=== PATIENT | female | born 1995 | race Two or more races ===

== ENCOUNTER 2024-10-24 04:29 | Emergency (ER) | payer MEDICAID, SELFPAY ==
[2024-10-24 04:38] VITALS: BP 120/70; PULSE 78; RESP 20; TEMP 36.8; O2SAT 99
--- NOTE | 2024-10-24 05:15 | XR_ITS ---
Examination: CT abdomen and pelvis without contrast. Coronal 3-D reconstructions. Sagittal 2-D reconstructions. Date and time of exam:October 24, 2024, 0728 hours, comparison September 13, 2020 INDICATIONS: Left-sided abdominal pain beginning 4:00 AM this morning CTDI: vol (mGy): 12.6 DLP: (mGycm): 759 Technique: Axial images of the abdomen have been obtained, 3 mm slice thickness Intravenous contrast material has not been administered. Low dose protocols were performed. One or more of the following dose reduction techniques were used; automated exposure control, adjustment of the mA and/or KV according to patient size, use of iterative reconstruction technique. Findings: Nodule left breast axial image 10 No focal liver or splenic lesion Absent gallbladder No pancreatic or adrenal mass No renal or ureteral calculi, no hydronephrosis Aorta normal size Normal appendix 27 mm fat-containing umbilical hernia No bowel obstruction or diverticulitis Anteverted uterus Intact urinary bladder The osseous structures are intact IMPRESSION: 13 mm nodule medial left breast, recommend bilateral breast sonography follow-up No renal or ureteral calculi, no hydronephrosis Normal appendix 27 mm fat-containing umbilical hernia. No bowel obstruction diverticulitis or free air
--- NOTE | 2024-10-24 05:15 | EDRME_ITS ---
Rapid Medical Screening Exam RME Arrival date/time: 10/24/24 04:29 Chief Complaint: Abdominal Pain Vital signs: Vital Signs Temperature 98.3 F 10/24/24 04:38 Pulse Rate 78 10/24/24 04:38 Respiratory Rate 20 10/24/24 04:38 Blood Pressure 120/70 10/24/24 04:38 Pulse Oximetry (%) 99 10/24/24 04:38 Oxygen Delivery Method Room Air 10/24/24 04:38 RME Narrative: 29-year-old female with no relevant past medical history comes into the ED with chief complaint of left lower quadrant abdominal pain that started this morning. Patient states that the pain started this morning and is not associated with any nausea, vomiting, fevers. Patient does have a history of 3 previous hysterectomies and cholecystectomy. Patient took ibuprofen, but it did not relieve the pain. Last menstrual period was last month and is supposed to start her menstrual period this upcoming week. Has not had any abnormal vaginal bleeding. Last bowel movement was yesterday without any blood. Pertinent findings on physical exam were relevant for left lower quadrant pain with palpation, no rebound tenderness, no masses palpated. Ordered abdomen/pelvis CT without contrast, morphine 2 mg x 1, and blood work. Case disclosed with Attending Dr. Azalia Bullock PGY2 Disclaimer: Even though this this note was dictated by speech recognition and even though it was carefully revised there may still be minor errors in pipe stress engineer due to voice recognition software.
[2024-10-24] MEDS: MORPHINE SULF INJ 10 MG/ML VIAL 2 MG IVP (05:43)
[2024-10-24 05:58] LABS: Collection Type, Urine Voided
[2024-10-24 05:59] LABS: Basophils # (Auto) 0.0 Thou/mm3 (0.0-0.2); Basophils % (Auto) 0 % (0-2.5); Eosinophils # (Auto) 0.2 Thou/mm3 (0.0-0.5); Eosinophils % (Auto) 2 % (0-10); Hematocrit 39.7 % (36.0-46.0); Hemoglobin 13.1 g/dL (12.0-16.0); Immature Granulocytes Auto 0.03 Thou/mm3 (0.00-0.00); Lactate (Lactic Acid) 0.9 mMol/L (0.4-2.0); Lymphocytes # (Auto) 2.8 Thou/mm3 (1.0-4.8); Lymphocytes % (Auto) 32 % (10-50); Mean Corpuscular HGB Conc 33.0 g/dl (31.0-37.0); Mean Corpuscular Hemoglobin 28.3 pg (25.0-35.0); Mean Corpuscular Volume 86 fL (80-100); Monocytes # (Auto) 0.4 Thou/mm3 (0.0-0.8); Monocytes % (Auto) 5 % (0-12); Neutrophils # (Auto) 5.2 Thou/mm3 (1.8-7.7); Neutrophils % (Auto) 60 % (37-80); Nucleated Red Blood Cell # 0.00 Thou/mm3 (0.00-0.00); Nucleated Red Blood Cell % 0 /100 WBC (0); Platelet Count 292 Thou/mm3 (140-440); RDW Standard Deviation 41.4 fL (36.4-46.3); Red Blood Count 4.63 Miln/mm3 (4.00-5.20); White Blood Count 8.7 Thou/mm3 (3.6-11.0)
--- NOTE | 2024-10-24 06:07 | PC.NURSE ---
PT BIB BY FOR LEFT SIDE ABDOMINAL PAIN. PT STATES THAT PAIN STARTED TODAY. PT DENIES N/V.
[2024-10-24 06:09] LABS: Amphetamine/Methamp Scrn,U Negative (Negative); Barbiturate Screen,Urine Negative (Negative); Benzodiazepines Screen,Urine Negative (Negative); Benzoylecgonine Screen, Ur Negative (Negative); Fentanyl Screen,Urine Negative (Negative); Opiate Screen,Urine Negative (Negative); THC Screen,Urine Negative (Negative)
[2024-10-24 06:16] LABS: HCG Qualitative,Urine Negative
[2024-10-24 06:23] LABS: Bacteria,Urine Rare; Bilirubin,Urine Negative (Negative); Blood,Urine Negative (Negative); Clarity,Urine Clear (Clear/Hazy); Color,Urine Yellow (Lt Yel-Yel); Glucose, Urine Negative (Negative); Ketones,Urine Negative (Negative); Leukocyte Esterase,Urine Negative (Negative); Nitrite,Urine Negative (Negative); PH,Urine 6.0 (5.0-7.0); Protein,Urine Negative (Neg - Trace); RBC,Urine < 1 /hpf (0-3); Specific Gravity,Urine 1.022 (1.001-1.035); Squamous Epithelial Cell,Urine 1 /hpf (0-5); Urobilinogen,Urine Negative mg/dL (0.0-1.0); WBC,Urine 1 /hpf (0-5)
[2024-10-24 06:27] LABS: Alanine Aminotransferase 56 U/L (10-49); Albumin, Serum 4.5 gm/dL (3.5-5.0); Albumin/Globulin Ratio 1.6 (1.2-2.2); Alkaline Phosphatase 91 U/L (46-116); Anion Gap 8 (7-16); Aspartate Amino Transferase 37 U/L (0-34); BUN/Creatinine Ratio 11 Ratio (12-20); Bilirubin,Total 0.6 mg/dL (0.3-1.2); Blood Urea Nitrogen 8 mg/dL (9-23); Calcium 9.1 mg/dL (8.3-10.6); Calcium (Corrected) 9.1 mg/dL (8.5-10.1); Carbon Dioxide 26.9 mMol/L (20.0-31.0); Chloride 105 mMol/L (98-107); Creatinine (Component) 0.7 mg/dL (0.6-1.3); Globulin 2.9 gm/dL (2.3-3.5); Glucose 86 mg/dL (74-106); Osmolality,Calculated 276 (275-295); Potassium 3.7 mMol/L (3.4-5.1); Procalcitonin 0.04 ng/ml (0.0-0.49); Sodium 140 mMol/L (136-145); Total Protein 7.4 gm/dL (5.7-8.2); eGFR > 60 See Note
--- NOTE | 2024-10-24 06:36 | EDNOTE_ITS ---
ED Abdominal Pain RME/HPI General Chief Complaint: Abdominal Pain Stated complaint: LEFT ABD PAIN Time seen by provider: 10/24/24 06:18 Arrival date/time: 10/24/24 04:29 RME / HPI RME / HPI narrative: 29-year-old female with no relevant past medical history comes into the ED with chief complaint of left lower quadrant abdominal pain that started this morning. Patient states that the pain started this morning and is not associated with any nausea, vomiting, fevers. Patient does have a history of 3 previous hysterectomies and cholecystectomy. Patient took ibuprofen, but it did not relieve the pain. Last menstrual period was last month and is supposed to start her menstrual period this upcoming week. Has not had any abnormal vaginal bleeding. Last bowel movement was yesterday without any blood. Pertinent findings on physical exam were relevant for left lower quadrant pain with palpation, no rebound tenderness, no masses palpated. Ordered abdomen/pelvis CT without contrast, morphine 2 mg x 1, and blood work. Case disclosed with Attending Dr. Azalia Bullock PGY2 Disclaimer: Even though this this note was dictated by speech recognition and even though it was carefully revised there may still be minor errors in brake coupler road freight due to voice recognition software. DR. SMITH MAIN ED EVALUATION 29 year old female with surgical history of cholecystectomy and c-sections othe rwise no other stated medical history, presents to the ED for evaluation of left lower abdominal pain that woke her from sleep at ~ 04:00h today. Described as aching in sensation rating as severe. States she had experienced similar pain twice before, lasting several hours, before resolving with Ibuprofen. However, states she took Ibuprofen today with no improvement, prompting ED visit. Additionally reports she initially had no associated nausea but since arriving to the ED and taking pain medication, she is nauseated. Denies fevers, chills, sweats, sore throat, vomiting, diarrhea, constipation, or change in urinary habits. Last bowel movement was yesterday and normal for her. Related Data Home Medications ?Medication ?Instructions ?Recorded ?Confirmed prenat.vits,nadja,log-[id number] 1 tab PO QDAY 01/01/20 02/15/20 Previous Rx's ?Medication ?Instructions ?Recorded hydrocodone 5 mg-acetaminophen 325 1 tab PO Q4HR PRN P atient rated 02/17/20 mg tablet pain 7 to 8 #30 tabs ibuprofen 400 mg tablet 800 mg (2 x 400 mg) PO Q8HR PRN 02/17/20 Pain Scale 4-6 (Moderate #30 tabs Allergies Allergy/AdvReac Type Severity Reaction Status Date / Time No Known Allergies Allergy Verified 10/24/24 04:30 Review of Systems Review of Systems Systems Reviewed: All systems reviewed, normal except as documented Past Medical History Past Medical History REPRODUCTIVE: Positive Previous Pregnancies OTHER HISTORY: Positive Hospitalization Surgical History SURGICAL: Positive Section Social History SMOKING STATUS: Never smoker ED Exam Narrative Physical exam: Constitutional: Awake, alert, nontoxic, no acute distress, overweight HEENT: NC, AT, EOMI Neck: Supple CV: RRR, no m/r/g Lungs: CTAB, no w/r/r, no respiratory distress. Abd: Soft, left lower quadrant tenderness, no HSM noted to palpation Back: No CVA tenderness, normal inspection Extremities: No deformities, no edema noted Neuro: AAOx3, CN 2-12 GIBL, no acute neuro deficit noted. Skin: Warm, dry, intact Course Course Course Narrative: 0910h: Patient remain stable through ED course, vitals are stable. Checked on patient, resting comfortably and in no acute distress. Labs and imaging performed today are unremarkable. We reviewed all the results, analysis, and treatment plans. Strict return precautions were outlined. Patient was discharged in stable condition. To follow-up with her PCP should symptoms persist, may consider GI follow-up. Quality Measures none Orders Category Date Time Status CT abdomen pelvis wo con Stat Exams 10/24/24 05:15 Completed US pelvic complete Stat Exams 10/24/24 06:35 Completed CBC [CBC] Stat Lab 10/24/24 05:52 Completed CMP [Comprehensive Metabolic Panel] Stat Lab 10/24/24 05:52 Completed Drug Screen,Urine Stat Lab 10/24/24 05:48 Completed HCG Qualitative,Urine Stat Lab 10/24/24 05:48 Completed Lactic Acid [Lactate (Lactic Acid)] Stat Lab 10/24/24 05:52 Completed Procalcitonin Stat Lab 10/24/24 05:52 Completed UA [Urinalysis] Stat Lab 10/24/24 05:48 Completed Ketorolac Inj [Toradol Inj] Med 10/24/24 06:35 Discontinued 30 mg IVP X1 ONE Morphine Inj Med 10/24/24 05:30 Discontinued 2 mg IVP X1 ONE Ondansetron Inj [Zofran Inj] Med 10/24/24 06:35 Discontinued 4 mg IVP X1 ONE Vital Signs Vital signs: Vital Signs Temperature 98.3 F 10/24/24 04:38 Pulse Rate 78 10/24/24 04:38 Respiratory Rate 20 10/24/24 04:38 Blood Pressure 120/70 10/24/24 04:38 Pulse Oximetry (%) 99 10/24/24 04:38 Oxygen Delivery Method Room Air 10/24/24 04:38 Pulse ox is 99% on room air which is adequate. Abdominal Pain MDM MDM Narrative MDM Narrative:: Temitope Evans am scribing for and in the presence of Dr. Smith. Patient data External records reviewed:: [facility] previous records (I reviewed ED visit on 08/08/2023 ) Clinical information provided by:: patient Social determinants that could affect healthcare access:: none Patient has the following chronic illnesses:: No chronic medical hx Surgical hx: C-sections, cholecystectomy How is presenting disease/condition affected by chronic disease/condition?: uneffected by Evaluation data The following diagnostics were reviewed and interpreted by me:: lab results and radiology exam(s) Lab and/or radiology exams considered but not ordered:: None Interpretation Summary: Ordering Physician: Duran Queen MD Date of Service: 10/24/24 Procedure(s): CT abdomen pelvis wo con Accession Number(s): [id number] cc: Titus Menon MD; NO PRIMARY/FAMILY,PHYSICIAN; Duran Queen MD~ Examination: CT abdomen and pelvis without contrast. Coronal 3-D reconstructions. Sagittal 2-D reconstructions. Date and time of exam:October 24, 2024, 0728 hours, comparison September 13, 2020 INDICATIONS: Left-sided abdominal pain beginning 4:00 AM this morning CTDI: vol (mGy): 12.6 DLP: (mGycm): 759 Technique: Axial images of the abdomen have been obtained, 3 mm slice thickness Intravenous contrast material has not been administered. Low dose protocols were performed. One or more of the following dose reduction techniques were used; automated exposure control, adjustment of the mA and/or KV according to patient size, use of iterative reconstruction technique. Findings: Nodule left breast axial image 10 No focal liver or splenic lesion Absent gallbladder No pancreatic or adrenal mass No renal or ureteral calculi, no hydronephrosis Aorta normal size Normal appendix 27 mm fat-containing umbilical hernia No bowel obstruction or diverticulitis Anteverted uterus Intact urinary bladder The osseous structures are intact IMPRESSION: 13 mm nodule medial left breast, recommend bilateral breast sonography follow-up No renal or ureteral calculi, no hydronephrosis Normal appendix 27 mm fat-containing umbilical hernia. No bowel obstruction diverticulitis or free air Dictated By: Titus eMnon MD Signed By: <Electronically signed by Tiuts Menon MD in [place]> 10/24/24 0747 Ordering Physician: Barbi Smith MD Date of Service: 10/24/24 Procedure(s): US pelvic complete Accession Number(s): [id number] cc: Titus Menon MD; Barbi Smith MD; NO PRIMARY/FAMILY,PHYSICIAN~ Examination: Pelvic ultrasound, transabdominal, complete Technique: Transabdominal ultrasound of the pelvis performed using grayscale imaging Date and time of exam: October 24, 2024, 0745 hours INDICATIONS: Onset left-sided flank pain pelvic pain today. FINDINGS: Uterus 10.2 cm endometrial stripe 1.2 cm No uterine mass or intrauterine gestation Right ovary 2.6 cm arterial flow Left ovary 2.8 cm arterial flow IMPRESSION: Negative examination Dictated By: Titus Menon MD Signed By: <Electronically signed by Titus Menon MD in [place]> 10/24/24 0757 Medications / Prescriptions Medications or Prescriptions considered but not ordered:: None Medication administrations:: Medication Administration History Discontinued Medications Ketorolac Tromethamine (Ketorolac Inj 30 Mg/Ml Vial) 30 mg IVP X1 ONE Stop: 10/24/24 06:36 Last Admin: 10/24/24 06:42 Dose: 30 mg Documented By: JAZMIN Morphine Sulfate (Morphine Sulf Inj 10 Mg/Ml Vial) 2 mg IVP X1 ONE Stop: 10/24/24 05:31 Last Admin: 10/24/24 05:43 Dose: 2 mg Documented By: JAZMIN Ondansetron HCl (Ondansetron Inj 2 Mg/Ml Inj 2 Ml) 4 mg IVP X1 ONE; Protocol Stop: 10/24/24 06:36 Last Admin: 10/24/24 06:41 Dose: 4 mg Documented By: JAZMIN See above Consultations Consultation(s) initiated? (list below): No Diagnosis Differential diagnosis abdominal pain: abdominal pain, calculus of kidney and constipation Most likely diagnosis given after review of the tests above:: Left lower quadrant pain Admission Indicated Admission indicated?: not indicated Admission Request Was there a request for admission?: No Disposition Plan Disposition Plan: Discharge Discharge Attestation Discharge Attestation: The patient and all family members were given an opportunity to ask questions and understood the discharge instructions. Discharge instructions specifically effects, indications for sooner follow up or return to the emergency department, and the expected course of current diagnosis. Patient condition: Stable Discharge Plan Plan Patient Disposition: HOME (Self Care) Patient condition on transfer: Stable Prescriptions/Referrals Prescriptions/Med Rec: No Action hydrocodone-acetaminophen 5-325 mg Tablet 1 tab PO Q4HR MDD 6 PRN (Reason: Patient rated pain 7 to 8) Qty: 30 0RF ibuprofen 400 mg Tablet 800 mg PO Q8HR PRN (Reason: Pain Scale 4-6 (Moderate) Qty: 30 0RF prenat.vits,nadja,[id number] Tablet 1 tab PO QDAY Referrals: No Primary/Family,Physician [Primary Care Provider] - In 1 week Problem List Clinical Impression: Left lower quadrant abdominal pain Patient/Caregiver Discharge Instructions Education Materials: Abdominal Pain Additional Instructions: May take Tylenol 1 g every 6 hours as needed for pain. May also try naproxen/Aleve 500 mg every 12 hours as needed for pain. Print Language: Macanese Stand Alone Forms: Jennifer Award Info., Patient Portal Info Letter
[2024-10-24] MEDS: ONDANSETRON INJ 2 MG/ML INJ 2 ML 4 MG IVP (06:41)
[2024-10-24] MEDS: KETOROLAC INJ 30 MG/ML VIAL IVP (06:42)
--- NOTE | 2024-10-24 07:30 | PC.NURSE ---
Received report from Amberly TRAN and assumed care of patient. Patient taken to CT.
[2024-10-24 08:01] VITALS: BP 108/58; PULSE 61; RESP 20; TEMP 36.9; O2SAT 98
== END 2024-10-24 09:47 | disposition home or self-care (01) ==
PROVIDERS: Emergency Provider Family Medicine
DX: R10.32 Left lower quadrant pain (principal); K42.9 Umbilical hernia without obstruction or gangrene; N63.20 Unspecified lump in the left breast, unspecified quadrant; Z90.49 Acquired absence of other specified parts of digestive tract
CPT/HCPCS: 36415; 74176; 76856; 80053; 80307; 81001; 81025; 83605; 84145; 85025; 99283; J1885; J2270; J2405

== ENCOUNTER 2024-12-18 06:05 | Day surgery (SDC) | payer MEDICAID, SELFPAY ==
[2024-12-17 11:01] VITALS: BMI 37.3
[2024-12-17 12:08] LABS: Basophils # (Auto) 0.0 Thou/mm3 (0.0-0.2); Basophils % (Auto) 0 % (0-2.5); Eosinophils # (Auto) 0.1 Thou/mm3 (0.0-0.5); Eosinophils % (Auto) 1 % (0-10); Hematocrit 39.0 % (36.0-46.0); Hemoglobin 13.0 g/dL (12.0-16.0); Immature Granulocytes Auto 0.02 Thou/mm3 (0.00-0.00); Lymphocytes # (Auto) 3.2 Thou/mm3 (1.0-4.8); Lymphocytes % (Auto) 36 % (10-50); Mean Corpuscular HGB Conc 33.3 g/dl (31.0-37.0); Mean Corpuscular Hemoglobin 28.7 pg (25.0-35.0); Mean Corpuscular Volume 86 fL (80-100); Monocytes # (Auto) 0.4 Thou/mm3 (0.0-0.8); Monocytes % (Auto) 5 % (0-12); Neutrophils # (Auto) 5.0 Thou/mm3 (1.8-7.7); Neutrophils % (Auto) 57 % (37-80); Nucleated Red Blood Cell # 0.00 Thou/mm3 (0.00-0.00); Nucleated Red Blood Cell % 0 /100 WBC (0); Platelet Count 288 Thou/mm3 (140-440); RDW Standard Deviation 41.6 fL (36.4-46.3); Red Blood Count 4.53 Miln/mm3 (4.00-5.20); White Blood Count 8.8 Thou/mm3 (3.6-11.0)
[2024-12-17 12:18] LABS: Anion Gap 11 (7-16); BUN/Creatinine Ratio 17 Ratio (12-20); Blood Urea Nitrogen 10 mg/dL (9-23); Calcium 9.7 mg/dL (8.3-10.6); Carbon Dioxide 24.1 mMol/L (20.0-31.0); Chloride 103 mMol/L (98-107); Creatinine (Component) 0.6 mg/dL (0.6-1.3); Estimated Creatinine Clearance 143.9 mL/min (>60); Glucose 83 mg/dL (74-106); Osmolality,Calculated 273 (275-295); Potassium 4.1 mMol/L (3.4-5.1); Sodium 138 mMol/L (136-145); eGFR > 60 See Note
[2024-12-18] VITALS (10 sets, daily range): BP systolic 104–114; BP diastolic 62–76; PULSE 57–73; RESP 12–20; TEMP 36.4–36.8; O2SAT 97–100; BMI 37.5
--- NOTE | 2024-12-18 07:20 | CHAP ---
Visited with patient giving encouragement and prayer.
--- NOTE | 2024-12-18 09:05 | SUR.PHASEI ---
0905 patient resting comfortably in [facility], on oxygen 6L via oxy mask, breathing unlabored, vital signs stable, dressing intact to abodmen; dermabond, fluffs, medipore tape, no bleeding noted, report received from Titus LUNDY/ Dr. Ramirez and Micaela TRAN
--- NOTE | 2024-12-18 09:16 | ESOP_ITS ---
Date of Procedure 12/18/24 Pre Op Diagnosis Incarcerated umbilical hernia Post Op Diagnosis Incarcerated umbilical hernia Procedure Laparoscopic assisted repair of incarcerated umbilical hernia with mesh Findings Approximately 3.5 cm umbilical hernia defect with incarcerated preperitoneal fat Procedure Description Patient brought into the operating room in supine position. After administration of general orotracheal anesthesia, patient's abdomen prepped and draped in standard surgical manner. A 5 mm incision was made in left upper tamika drant and Veress needle was inserted, pneumoperitoneum was obtained to 15 mmHg. The Veress needle was removed and a 5 mm trocar was placed. Laparoscopic camera was inserted, under direct visualization a laparoscopic camera a 5 mm trocar placed in left lower quadrant and additional 5 mm trocar placed in right lower quadrant. The abdomen was inspected and patient was noted to have an incarcerated umbilical hernia with preperitoneal fat being incarcerated within the hernia sac. There was no evidence of omental or bowel incarceration. At this point approximately 3 cm semicircular incision was made superior to the umbilicus and dissection was carried to subcutaneous tissue. The hernia sac was circumferentially dissected off surrounding tissue. The hernia sac along with incarcerated preperitoneal fat were excised from surrounding abdominal fascia. The fascia was cleared from overlying tissue. The defect was approximately 3.5 cm in diameter. A 4 x 6 elliptical shape proceed mesh was used to cover the defect. 2 tacking sutures using 0 Ethibond placed the 2 ends of the mesh and the mesh was placed inside the abdominal cavity through the hernia defect. The defect was closed with interrupted sutures using 0 Ethibond. The umbilicus was tacked into the underlying abdominal fascia was 2-0 Vicryl suture in subcutaneous tissue closed with interrupted sutures of 2-0 Vicryl. The abdomen was once again insufflated. 2 tacking sutures of the 2 ends of the mesh were retrieved through the previously marked abdominal wall site. Sutures were tightened and the mesh was further secured into anterior abdominal wall with secure strap tacking device. The mesh was covering the defect with at least 4 cm circumferential margin. Hemostasis was adequate and satisfactory. Instruments and trocars removed, pneumoperitoneum was evacuated and the incisions closed 4-0 Monocryl subcuticular fashion. Instruments, needles and sponge counts were reported to be correct ?2 patient tolerated the procedure well. Patient was extubated, breathing spontaneously and without difficulty and was transferred to postanesthesia care in stable condition. Anesthesia GETA and local Pathology / specimen Other (Hernia sac and contents) Estimated Blood Loss 5 Condition Stable Disposition PACU Surgeon Jacey Gill MD Surgical Staff Operation Date: 12/18/24 08:00 Case Staff Anesthesiologist: James Ramirez RN First Assistant: Ladan Garza
[2024-12-18] MEDS: KETOROLAC INJ 30 MG/ML VIAL IVP (09:18)
[2024-12-18] MEDS: ACETAMINOPHEN IVPB 1,000 MG/100 ML VIAL 250 MG IV (09:21)
[2024-12-18] MEDS: HYDROmorphone INJ 2 MG/ML VIAL 0.4 MG IVP (09:42)
--- NOTE | 2024-12-18 10:13 | SUR.PHASEII ---
1013 patient meets discharge criteria from recovery, awake and alert, breathing unlabored, vital signs stable, per patient her pain is tolerable, dressing intact; no bleeding noted, abdominal binder applied to patient per anesthesia order, drinking fluids, denies nausea, assisted with dressing into her clothing by her , discharge instructions given to patient and patients with the assistance of the hospital dog sitter Farrah, signed discharge instructions. Patient given all her belongings prior to discharge, transported via wheelchair and left in a private vehicle.
== END 2024-12-18 10:13 | disposition home or self-care (01) ==
PROVIDERS: PCP Family Medicine; Referring Provider Surgery; Visit Provider Surgery
PROC: 0WQF4ZZ Repair Abdominal Wall, Percutaneous Endoscopic Approach (ICD-10-PCS; CPT 49594; principal; 2024-12-18 08:00)
DX: K42.0 Umbilical hernia with obstruction, without gangrene (principal)
CPT/HCPCS: 49594; 36415; 80048; 85025; A4649; C1781; J0131; J0694; J1100; J1171; J1885; J2250; J2371; J2405; J2704; J2765; J3010; J3490; A9270

== ENCOUNTER 2024-12-19 02:01 | Emergency (ER) | payer MEDICAID, SELFPAY ==
[2024-12-19 02:02] VITALS: BMI 37.3
[2024-12-19 02:13] VITALS: BP 103/69; PULSE 63; RESP 18; TEMP 36.5; O2SAT 99
--- NOTE | 2024-12-19 02:14 | PD.EDABDPN ---
ED Abdominal Pain RME/HPI General Chief Complaint: Abdominal Pain Stated complaint: S/P SX HERNIA PAIN Time seen by provider: 12/19/24 02:18 Arrival date/time: 12/19/24 02:01 RME / HPI RME / HPI narrative: See MDM for Dr. Pineda's HPI documentation. Related Data Home Medications ?Medication ?Instructions ?Recorded ?Confirmed semaglutide (weight loss) 2.4 2.4 mg subcut Q7D 12/17/24 12/17/24 mg/0.75 mL subcutaneous pen injector (Wegovy) Previous Rx's ?Medication ?Instructions ?Recorded docusate sodium 100 mg capsule 100 mg PO BID #40 caps 12/18/24 (Colace) hydrocodone 5 mg-acetaminophen 325 1 tab PO Q6H PRN pain (scale score 12/18/24 mg tablet 7-10) #15 tabs ibuprofen 600 mg tablet 600 mg PO Q8H PRN pain (scale 12/18/24 score 4-6) #15 tabs Allergies Allergy/AdvReac Type Severity Reaction Status Date / Time No Known Allergies Allergy Verified 12/18/24 06:46 Review of Systems Review of Systems Systems Reviewed: All systems reviewed, normal except as documented Past Medical History Past Medical History NEUROLOGIC: Negative Neurological Disorders or Seizures CARDIAC: Negative Cardiac Disorders or Congestive Heart Failure RESPIRATORY: Negative Chronic Obstructive Pulmonary Disease (COPD) GASTROINTESTINAL: Negative Gastrointestinal Disorders, Hepatitis or Colorectal Cancer GENITOURINARY: Negative Genitourinary Disorders or Renal Disease REPRODUCTIVE: Positive Previous Pregnancies; Negative Breast Cancer MUSCULOSKELETAL: Negative Musculoskeletal Disorders or Bone Cancer ENDOCRINE: Negative Endocrine Disorders, Diabetes Mellitus Type 1 or Diabetes Mellitus Type 2 HEMATOLOGIC: Negative Blood Disorders OTHER HISTORY: Positive Hospitalization; Negative Autoimmune Disease, Down Syndrome, Developmental Delay, Shingles, Falls, Blood Transfusions, Blood Transfusion Reaction, Anesthesia Reactions, Organ Transplant, Chemotherapy, Radiation Therapy, Hyperbaric Therapy, MRSA, VRSA, Vancomycin-Resistant Enterococci, Human Immunodeficiency Virus (HIV), Chicken Pox, Measles, Mumps, Rubella (Marshallese Measles), Pertussis, Clostridium Difficile, Cancer, Breast Cancer, Cervical Cancer, Colorectal Cancer, Lung Cancer or Ovarian Cancer Family History FAMILY HISTORY: Positive Family Cancer and Family Surgery; Negative Family Psychiatric Problems, Family Respiratory Disorders, Family Cardiac Disorders, Family Gastrointestinal Problems or Family Anesthesia Reaction Surgical History SURGICAL: Positive Abdominal Surgery, Tubal Ligation and Section (x3); Negative Organ Transplant Social History SMOKING STATUS: Never smoker ED Exam Narrative Physical exam: See [facility] for Dr. Pineda's physical exam documentation. Course Quality Measures none Orders Category Date Time Status CT Screening NOW Care 12/19/24 02:20 Active Saline [Insert IV] NOW Care 12/19/24 02:[address] abdomen pelvis w con Stat Exams 12/19/24 02:20 Taken Amylase Stat Lab 12/19/24 03:05 Completed Bilirubin,Direct Stat Lab 12/19/24 03:05 Completed Blood Culture (Lab) Stat Lab 12/19/24 03:05 Received CBC Stat Lab 12/19/24 02:42 Completed CMP [Comprehensive Metabolic Panel] Stat Lab 12/19/24 03:05 Completed CRP [C-Reactive Protein] Stat Lab 12/19/24 03:05 Completed ESR [Sed Rate (ESR)] Stat Lab 12/19/24 02:42 Completed HCG,Qualitative Serum Stat Lab 12/19/24 03:05 Completed Lactate (Lactic Acid) Stat Lab 12/19/24 02:42 Completed Lipase Stat Lab 12/19/24 03:05 Completed Magnesium Stat Lab 12/19/24 03:05 Completed Procalcitonin Stat Lab 12/19/24 03:05 Completed UA, C/S IF [Urinalysis, C/S if Indicated] Stat Lab 12/19/24 04:08 Completed Diazepam Inj [Valium Inj] Med 12/19/24 04:20 Discontinued 8 mg IVP X1 ONE HYDROmorphone INJ [Dilaudid Inj] Med 12/19/24 02:19 Discontinued 2 mg IVP X1 ONE Ketorolac Inj [Toradol Inj] Med 12/19/24 02:19 Discontinued 30 mg IVP X1 ONE Ondansetron Inj [Zofran Inj] Med 12/19/24 02:19 Discontinued 4 mg IVP X1 ONE Piper/Tazo 3.375 gm Premix [Zosyn] Med 12/19/24 05:34 Ordered 3.375 gm in 50 ml IV X1 Ringers Lactated 1000 ml [Lactated Ringers] 1,000 ml Med 12/19/24 04:45 Discontinued IV 1,000 mls/hr Ringers Lactated 1000 ml [Lactated Ringers] 1,000 ml Med 12/19/24 04:58 Active IV 999 mls/hr Sodium Chloride 0.9% 1000 ml [Ns] 1,000 ml Med 12/19/24 02:19 Discontinued IV 999 mls/hr Vital Signs Vital signs: Vital Signs Temperature 97.7 F 12/19/24 02:13 Pulse Rate 63 12/19/24 02:13 Respiratory Rate 18 12/19/24 02:13 Blood Pressure 103/69 12/19/24 02:13 Pulse Oximetry (%) 99 12/19/24 02:13 Oxygen Delivery Method Room Air 12/19/24 02:13 Abdominal Pain MDM MDM Narrative MDM Narrative:: This section includes all my notes and documentations, including HPI, PE, and ED course. Oumar Pineda MD HPI: 29-year-old female here with severe abdominal pain. Yesterday, Dr. Gill performed umbilical hernia surgery here. She reports worsening abdominal pain and nausea and vomiting. No hematemesis or coffee-ground emesis. She reports no bowel movement and no flatus. No fever. No other complaints. ROS: All negative except as documented in HPI. Physical Exam: General: Alert and oriented. In severe pain. Eyes: Conjunctivae and lids clear. ENT: No nasal congestion. Neck: Supple. Heart: RRR. Lungs: No respiratory distress. Good air movement. No rhonchi, wheezing, rales. Abdomen: Severe and diffuse tenderness noted. Decreased bowel sounds. Equivocal distension. Equivocal rebound/guarding. Back: No CVA tenderness. Skin: Warm and dry. Neuro: Alert and oriented X 3. I reviewed all returned diagnostic test results. Blood tests remarkable for WBC 23.8, CRP 5.1. My interpretation of the abdominal CT report is: 1. Mild inflammatory changes and trace of soft tissues emphysema in the anterior abdominal wall at the probable surgical site without evidence of collections. 2. Small amount of free air within the peritoneal cavity, possibly postsurgical or possibly due to bowel perforation. Please, correlate clinically. 3. Small amount of complex fluid in the pelvis suspicious for peritonitis. Surgical consult is recommended. 4. Complex left ovarian lesion, consider correlation with pelvic ultrasound for further evaluation. At this point, diagnoses include: Abdominal pain after umbilical hernia repair yesterday Treatment here included: IV fluid Zofran 4 mg IV Toradol 30 mg IV Dilaudid 2 g IV Zosyn 3.375 g IV I discussed the case with Dr. Gill.? About the presentation and exam and diagnostics and treatments here.? Will be here to evaluate the patient. At 6 AM on 12/19/2024, the care of the patient was transferred to Dr. CHENEY. Oumar Pineda MD Patient data External records reviewed:: [facility] previous records (Per chart review, patient had umbilical hernia repair surgery here on 12/18/[address] Gill.) Clinical information provided by:: patient Social determinants that could affect healthcare access:: none Patient has the following chronic illnesses:: none How is presenting disease/condition affected by chronic disease/condition?: no chronic disease Evaluation data The following diagnostics were reviewed and interpreted by me:: lab results and radiology exam(s) Lab and/or radiology exams considered but not ordered:: none Interpretation Summary: I reviewed all returned diagnostic test results. Blood tests remarkable for WBC 23.8, CRP 5.1. My interpretation of the abdominal CT report is: 1. Mild inflammatory changes and trace of soft tissues emphysema in the anterior abdominal wall at the probable surgical site without evidence of collections. 2. Small amount of free air within the peritoneal cavity, possibly postsurgical or possibly due to bowel perforation. Please, correlate clinically. 3. Small amount of complex fluid in the pelvis suspicious for peritonitis. Surgical consult is recommended. 4. Complex left ovarian lesion, consider correlation with pelvic ultrasound for further evaluation. Medications / Prescriptions Medications or Prescriptions considered but not ordered:: none Medication administrations:: Medication Administration History Lactated Ringer's (Lactated Ringers) 1,000 mls @ 999 mls/hr IV .Q1H1M ONE Stop: 12/19/24 05:58 Last Admin: 12/19/24 05:04 Dose: 999 mls/hr Documented By: LISS Piperacillin/Tazobactam/Dextrose (Zosyn) 3.375 gm in 50 mls @ 100 mls/hr IV X1 ONE; Protocol Stop: 12/19/24 06:03 Discontinued Medications Diazepam (Diazepam Inj 5 Mg/Ml Vial 2 Ml) 8 mg IVP X1 ONE Stop: 12/19/24 04:21 Last Admin: 12/19/24 04:59 Dose: Not Given Documented By: JAZMIN Non-Admin Reason: Cancelled by Provider Hydromorphone HCl (Hydromorphone Inj 2 Mg/Ml Vial) 2 mg IVP X1 ONE Stop: 12/19/24 02:20 Last Admin: 12/19/24 03:05 Dose: 2 mg Documented By: JAZMIN Sodium Chloride (Ns) 1,000 mls @ 999 mls/hr IV .Q1H1M ONE Stop: 12/19/24 03:19 Last Infusion: 12/19/24 04:12 Dose: Infused Documented By: Admin: 12/19/24 02:58 Dose: 999 mls/hr Documented By: JAZMIN Lactated Ringer's (Lactated Ringers) 1,000 mls @ 1,000 mls/hr IV .Q1H CASSI Stop: 01/18/25 04:44 Last Admin: 12/19/24 04:59 Dose: Not Given Documented By: JAZMIN Non-Admin Reason: Cancelled by Provider Ketorolac Tromethamine (Ketorolac Inj 30 Mg/Ml Vial) 30 mg IVP X1 ONE Stop: 12/19/24 02:20 Last Admin: 12/19/24 02:58 Dose: 30 mg Documented By: JAZMIN Ondansetron HCl (Ondansetron Inj 2 Mg/Ml Inj 2 Ml) 4 mg IVP X1 ONE; Protocol Stop: 12/19/24 02:20 Last Admin: 12/19/24 02:58 Dose: 4 mg Documented By: JAZMIN IV fluid Zofran 4 mg IV Toradol 30 mg IV Dilaudid 2 g IV Zosyn 3.375 g IV Consultations Consultation(s) initiated? (list below): Yes Consultation #1 (Physician, Specialty, Details): I discussed the case with Dr. Gill.? About the presentation and exam and diagnostics and treatments here.? Will be here to evaluate the patient. Diagnosis Differential diagnosis abdominal pain: acute appendicitis, calculus of kidney, constipation, diverticulitis, endometriosis, gastroenteritis, pancreatitis, small bowel obstruction and other (Postsurgical complication) Most likely diagnosis given after review of the tests above:: Possible perforation and peritonitis after umbilical hernia repair. Admission Indicated Admission indicated?: not indicated Explain why admission is indicated or not indicated:: I discussed the case with Dr. Gill.? About the presentation and exam and diagnostics and treatments here.? Will be here to evaluate the patient. Admission Request Was there a request for admission?: No Disposition Plan Disposition Plan: other (specify) (At 6 AM on 12/19/2024, the care of the patient was transferred to Dr. CHENEY.) Discharge Plan Prescriptions/Referrals Prescriptions/Med Rec: No Action Wegovy 2.4 mg/0.75 mL pen injector 2.4 mg SUBCUT Q7D Patient Comments: INJECT 2.4MG SUBCUTANEOUSLY WEEKLY docusate sodium [Colace] 100 mg capsule 100 mg PO BID Qty: 40 0RF hydrocodone-acetaminophen 5-325 mg tablet 1 tab PO Q6H MDD 4 PRN (Reason: pain (scale score 7-10)) Qty: 15 0RF ibuprofen 600 mg tablet 600 mg PO Q8H PRN (Reason: pain (scale score 4-6)) Qty: 15 0RF Referrals: Regan Martínez MD [Primary Care Provider, Family Practice] - In 1 week Problem List Clinical Impression: Abdominal pain Patient/Caregiver Discharge Instructions Print Language: French
--- NOTE | 2024-12-19 02:20 | XR_ITS ---
Examination: CT abdomen with intravenous contrast CT pelvis with intravenous contrast 2-D coronal reconstructions 2-D sagittal reconstructions Date and time of exam: December 19, 2024, 0431 hours INDICATIONS: Status post hernia repair yesterday with worsening abdominal pain. CTDI: vol (mGy) 12.3 DLP: (mGycm) 719 Technique: Multiple axial sections of the abdomen and pelvis have been obtained. 64 slice high-resolution scanner used. 3 mm axial sections have been obtained, post intravenous injection 60 cc [id number] 2-D sagittal, coronal reconstructions obtained. Low dose protocols were performed. One or more of the following dose reduction techniques were used; automated exposure control, adjustment of the mA and/or KV according to patient size, use of iterative reconstruction technique. Findings: Pneumoperitoneum consistent with patient's postop status No liver or splenic lesion Absent gallbladder No pancreatic or adrenal mass No renal or ureteral calculi, no hydronephrosis Air and density in the anterior abdominal wall, consistent with postoperative change No bowel obstruction Normal appendix Moderate free fluid in the pelvis Contracted urinary bladder Mild osteopenia IMPRESSION: Pneumoperitoneum consistent with patient's postop status Normal appendix Postoperative changes in the lower anterior abdominal wall No bowel obstruction No abdominal or pelvic hematoma or abscess
[2024-12-19 02:49] LABS: Basophils # (Auto) 0.0 Thou/mm3 (0.0-0.2); Basophils % (Auto) 0 % (0-2.5); Eosinophils # (Auto) 0.1 Thou/mm3 (0.0-0.5); Eosinophils % (Auto) 0 % (0-10); Hematocrit 37.7 % (36.0-46.0); Hemoglobin 13.0 g/dL (12.0-16.0); Immature Granulocytes Auto 0.16 Thou/mm3 (0.00-0.00); Lactate (Lactic Acid) 1.8 mMol/L (0.4-2.0); Lymphocytes # (Auto) 1.4 Thou/mm3 (1.0-4.8); Lymphocytes % (Auto) 6 % (10-50); Mean Corpuscular HGB Conc 34.5 g/dl (31.0-37.0); Mean Corpuscular Hemoglobin 28.8 pg (25.0-35.0); Mean Corpuscular Volume 83 fL (80-100); Monocytes # (Auto) 0.9 Thou/mm3 (0.0-0.8); Monocytes % (Auto) 4 % (0-12); Neutrophils # (Auto) 21.3 Thou/mm3 (1.8-7.7); Neutrophils % (Auto) 90 % (37-80); Nucleated Red Blood Cell # 0.00 Thou/mm3 (0.00-0.00); Nucleated Red Blood Cell % 0 /100 WBC (0); Platelet Count 290 Thou/mm3 (140-440); RDW Standard Deviation 41.1 fL (36.4-46.3); Red Blood Count 4.52 Miln/mm3 (4.00-5.20); White Blood Count 23.8 Thou/mm3 (3.6-11.0)
[2024-12-19 02:57] LABS: Sed Rate (ESR) 32 mm/hr (0-20)
[2024-12-19] MEDS: SODIUM CHLORIDE 0.9% 1000 ML 1,000 ML 999 ML IV (02:58)
[2024-12-19] MEDS: ONDANSETRON INJ 2 MG/ML INJ 2 ML 4 MG IVP (02:58)
[2024-12-19] MEDS: KETOROLAC INJ 30 MG/ML VIAL IVP (02:58)
[2024-12-19] MEDS: HYDROmorphone INJ 2 MG/ML VIAL IVP (03:05)
[2024-12-19 03:40] LABS: HCG,Qualitative Serum Negative
[2024-12-19 03:44] LABS: Alanine Aminotransferase 57 U/L (10-49); Albumin, Serum 4.2 gm/dL (3.5-5.0); Albumin/Globulin Ratio 1.6 (1.2-2.2); Alkaline Phosphatase 67 U/L (46-116); Amylase 104 U/L (30-118); Anion Gap 11 (7-16); Aspartate Amino Transferase 27 U/L (0-34); BUN/Creatinine Ratio 9 Ratio (12-20); Bilirubin,Direct 0.2 mg/dL (0.0-0.3); Bilirubin,Total 0.8 mg/dL (0.3-1.2); Blood Urea Nitrogen 6 mg/dL (9-23); C-Reactive Protein 5.1 mg/dL (0.0-0.9); Calcium 9.3 mg/dL (8.3-10.6); Calcium (Corrected) 9.3 mg/dL (8.5-10.1); Carbon Dioxide 21.8 mMol/L (20.0-31.0); Chloride 106 mMol/L (98-107); Creatinine (Component) 0.7 mg/dL (0.6-1.3); Estimated Creatinine Clearance 123.3 mL/min (>60); Globulin 2.7 gm/dL (2.3-3.5); Glucose 142 mg/dL (74-106); Lipase 23 U/L (12-53); Magnesium 1.8 mg/dL (1.6-2.6); Osmolality,Calculated 277 (275-295); Potassium 3.8 mMol/L (3.4-5.1); Procalcitonin 0.06 ng/ml (0.0-0.49); Sodium 139 mMol/L (136-145); Total Protein 6.9 gm/dL (5.7-8.2); eGFR > 60 See Note
[2024-12-19 04:19] LABS: Collection Type, Urine Clean Catch
[2024-12-19 04:40] VITALS: BP 101/68; PULSE 60; RESP 19; TEMP 36.9; O2SAT 97
[2024-12-19 04:44] LABS: Bacteria,Urine Rare; Bilirubin,Urine Negative (Negative); Blood,Urine Negative (Negative); Clarity,Urine Turbid (Clear/Hazy); Color,Urine Yellow (Lt Yel-Yel); Culture Indicated,Urine Not Indicated; Glucose, Urine Negative (Negative); Ketones,Urine Negative (Negative); Leukocyte Esterase,Urine Positive (Negative); Nitrite,Urine Negative (Negative); PH,Urine 6.5 (5.0-7.0); Protein,Urine 1+ (Neg - Trace); RBC,Urine 15 /hpf (0-3); Specific Gravity,Urine 1.033 (1.001-1.035); Squamous Epithelial Cell,Urine 50 /hpf (0-5); Urobilinogen,Urine Negative mg/dL (0.0-1.0); WBC,Urine 7 /hpf (0-5)
[2024-12-19] MEDS: RINGERS LACTATED 1000 ML 1,000 ML 999 ML IV (05:04)
--- NOTE | 2024-12-19 05:33 | PRELIM_ITS ---
CT scan of the abdomen and pelvis with intravenous contrast (axial sections with sagittal and coronal reformats) December 19, 2024 0429 hours Clinical History: Severe pain, hernia surgery yesterday. Comparison: Compared with the prior study dated October 24, 2024. Findings: The lung bases are clear. The liver, pancreas, spleen, kidneys and adrenals are unremarkable. Status post cholecystectomy. No evidence of bowel obstruction. The appendix is within normal limits. There is no mesenteric or retroperitoneal adenopathy. The urinary bladder is nondistended, limited evaluation. Small amount of complex free fluid in the peritoneal cavity. Small amount of free air within the peritoneal cavity. Mild inflammatory changes and trace of soft tissues emphysema in the anterior abdominal wall at the probable surgical site without evidence of collections. The osseous structures are unremarkable. Complex lesion in the left ovary measures 2.2 cm. No collections. Impression: 1. Mild inflammatory changes and trace of soft tissues emphysema in the anterior abdominal wall at the probable surgical site without evidence of collections. 2. Small amount of free air within the peritoneal cavity, possibly postsurgical or possibly due to bowel perforation. Please, correlate clinically. 3. Small amount of complex fluid in the pelvis suspicious for peritonitis. Surgical consult is recommended. 4. Complex left ovarian lesion, consider correlation with pelvic ultrasound for further evaluation. Report Electronically Signed By: Pedro Valencia 12/19/2024 5:32:31 AM [EST]
[2024-12-19] MEDS: PIPER/TAZO 3.375 GM PREMIX 3.375 GM/50 ML BAG IV (05:45)
--- NOTE | 2024-12-19 06:06 | EDNOTE_ITS ---
Emergency Room Addendum Addendum Narrative: 0600: Care assumed from Dr. Pineda, the previous shift emergency physician. Past medical, surgical, social and family history reviewed. Vitals and home medications reviewed. I will assume the care of the patient at this time, pending surgeon Dr. Gill to evaluate and final disposition. Please refer to the emergency department record for history and examination from initial visit.?The following addendum documentation note is intended to reflect any pending information, findings, or radiology results not included in the patient?s initial chart. Surgeon Dr. Gill has evaluated the patient in the ED. States patient can go home with instructions to order picker/assembler her pain medication at the pharmacy and follow up with him in his office.
[2024-12-19 06:10] VITALS: BP 105/64; PULSE 66; RESP 20; TEMP 36.8; O2SAT 100
--- NOTE | 2024-12-19 06:41 | PD.SURCONS ---
HPI Consult details Consult date: 12/19/24 Reason for consultation narrative: Abdominal pain History of present illness: I was called to see the patient I did laparoscopic hernia repair yesterday for possible bowel perforation. She underwent laparoscopic assisted repair of incarcerated umbilical hernia with mesh yesterday. She was having diffuse abdominal pain and was unable to picker and sorter load and unload her pain medication from pharmacy. She presented to the emergency department with diffuse abdominal pain, CT scan was performed with postoperative changes and bowel perforation could not be ruled out. When I entered patient's room she is resting comfortably and was not complaining of any abdominal pain at this time. Meds Home Medications and Allergies Home Medications ?Medication ?Instructions ?Recorded ?Confirmed ?Type semaglutide (weight loss) 2.4 2.4 mg subcut Q7D 12/17/24 12/17/24 History mg/0.75 mL subcutaneous pen injector (Wegovy) Allergies Allergy/AdvReac Type Severity Reaction Status Date / Time No Known Allergies Allergy Verified 12/18/24 06:46 Exam Vital Signs Temp Pulse Resp BP Pulse Ox O2 Del Method 98.3 F 66 20 105/64 100 Room Air 12/19/24 06:10 12/19/24 06:10 12/19/24 06:10 12/19/24 06:10 12/19/24 06:10 12/19/24 06:10 Constitutional Constitutional: no acute distress Routine Abdominal Exam Comments: Abdomen is very soft and not distended. Umbilical incision with dressings clean, dry and intact. Laparoscopic port incisions with Dermabond clean dry and intact Assessment & Plan Additional Assessment Additional comments: Abdominal pain status post laparoscopic assisted umbilical hernia repair. CT scan reviewed there is no free fluid or significant free air. Given patient's physical exam and CT scan findings, highly unlikely that she has bowel perforation. Plan May discharge home. Patient will picker and sorter load and unload her pain medication from pharmacy and follow-up in my office
[2024-12-19 07:18] VITALS: BP 104/69; PULSE 74; RESP 18; TEMP 36.4; O2SAT 99
[2024-12-19 08:00] VITALS: BP 104/62; PULSE 63; RESP 16; TEMP 36.6; O2SAT 99
== END 2024-12-19 08:34 | disposition home or self-care (01) ==
PROVIDERS: Emergency Medicine; Emergency Provider Emergency Medicine; PCP Family Medicine
DX: R10.9 Unspecified abdominal pain (principal); J43.9 Emphysema, unspecified; N83.8 Other noninflammatory disorders of ovary, fallopian tube and broad ligament; Z98.890 Other specified postprocedural states
CPT/HCPCS: 36415; 74177; 80053; 81001; 82150; 82248; 83605; 83690; 83735; 84145; 84703; 85025; 85652; 86140; 87040; 96361; 96365; 96375; 99284; A4649; J1171; J1885; J2405; J2543; J7030; J7120; Q9967

== ENCOUNTER → 2024-12-25 | Outpatient (CLI) | payer MEDICAID, SELFPAY ==
--- NOTE | 2024-12-25 15:00 | XR_ITS ---
Examination: Breast ultrasound, unilateral, right complete Date and time of exam: December 25, 2024, 1512 hours INDICATIONS: History of breast cystic disease Technique: Real-time hayden scale ultrasonographic imaging performed right breast including all 4 quadrants as well as nipple retroareolar and axillary region. Findings: 10:00 cyst 8 x 7 mm No solid nodules IMPRESSION: BI-RADS Category 2: Benign findings
== END | disposition home or self-care (01) ==
LOC: CDIM 14:57
PROVIDERS: PCP Nurse Practitioner Family; Referring Provider Nurse Practitioner Family; Visit Provider Nurse Practitioner Family
DX: N60.01 Solitary cyst of right breast (principal); Z80.3 Family history of malignant neoplasm of breast
CPT/HCPCS: 76641

== ENCOUNTER 2025-01-16 18:44 | Emergency (ER) | payer MEDICAID, SELFPAY ==
[2025-01-16 18:53] VITALS: BP 128/85; PULSE 85; RESP 20; TEMP 36.7; O2SAT 97
--- NOTE | 2025-01-16 19:07 | XR_ITS ---
Examination: CT abdomen with intravenous contrast CT pelvis with intravenous contrast 2-D coronal reconstructions 2-D sagittal reconstructions Date and time of exam: January 16, 2025, 2045 hours, comparison December 19, 2024 INDICATION: Pelvic pain post fall today. CTDI: vol (mGy) 13.3 DLP: (mGycm) 728 Technique: Multiple axial sections of the abdomen and pelvis have been obtained. 64 slice high-resolution scanner used. 3 mm axial sections have been obtained, post intravenous injection 60 cc Isovue-370 2-D sagittal, coronal reconstructions obtained. Low dose protocols were performed. One or more of the following dose reduction techniques were used; automated exposure control, adjustment of the mA and/or KV according to patient size, use of iterative reconstruction technique. Findings: No liver splenic or renal laceration, no perinephric hematoma Absent gallbladder No common bile duct stones Aorta normal size No pericecal inflammatory change No bowel obstruction Negative for pneumoperitoneum No pelvic mass Urinary bladder intact Mild osteopenia IMPRESSION: No abdominal parenchymal laceration Abdominal aorta intact No free blood in the abdomen or pelvis Negative for pneumoperitoneum
--- NOTE | 2025-01-16 19:08 | EDNOTE_ITS ---
ED Fall Injury RME/HPI General Chief Complaint: Fall Stated Complaint: FALL, ABD PAIN Time Seen by Provider: 01/16/25 19:08 Source: patient, RN notes reviewed and old records reviewed Arrival date/time: 01/16/25 18:44 Mode of arrival: ambulatory Limitations: no limitations RME / HPI RME / HPI Narrative: 29yof presents to ED for lower abdominal pain s/p fall today. Patient reports she slipped on a wet floor and fell onto her right side, denies head injury. History of umbilical hernia repair on 12/18/2024. Patient reports she felt something tear in lower abdomen with fall. No nausea/vomiting or urinary symptoms reported. Denies neck pain, back pain or joint pain from fall. 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 Related Data Home Medications ?Medication ?Instructions ?Recorded ?Confirmed semaglutide (weight loss) 2.4 2.4 mg subcut Q7D 12/17/24 mg/0.75 mL subcutaneous pen injector (Wegovy) Previous Rx's ?Medication ?Instructions ?Recorded docusate sodium 100 mg capsule 100 mg PO BID #40 caps 12/18/24 (Colace) hydrocodone 5 mg-acetaminophen 325 1 tab PO Q6H PRN pa in (scale score 12/18/24 mg tablet 7-10) #15 tabs ibuprofen 600 mg tablet 600 mg PO Q8H PRN pain (scal e 12/18/24 score 4-6) #15 tabs ibuprofen 600 mg tablet 600 mg PO Q6H PRN pain #30 t abs 01/16/25 methocarbamol 500 mg tablet 1,000 mg (2 x 500 mg) PO Q 8H PRN 01/16/25 pain #30 tabs Allergies Allergy/AdvReac Type Severity Reaction Status Date / Time No Known Allergies Allergy Verified 01/16/25 18:48 Review of Systems Review of Systems Systems Reviewed: All systems reviewed, normal except as documented Constitutional Constitutional: Denies chills and Denies fever(s) ENT Ears, Nose, Mouth, and Throat: Denies neck pain Gastrointestinal Gastrointestinal: Reports abdominal pain, Denies nausea and Denies vomiting Genitourinary Genitourinary: Denies dysuria, Denies flank pain and Denies hematuria Musculoskeletal Musculoskeletal: Denies arthralgias, Denies back pain and Denies neck pain Past Medical History Past Medical History GASTROINTESTINAL: Positive Obesity Surgical History SURGICAL: Positive Abdominal Surgery (hernia repair), Tubal Ligation, Section and Hx Cholecystectomy Social History SMOKING STATUS: Never smoker SUBSTANCE USE: does not use ALCOHOL: Never ED Exam General Limitations: Present no limitations General appearance: Present alert, in no apparent distress and obese Head Head exam: Present atraumatic and normocephalic Eye Eye exam: Present normal appearance, PERRL and EOMI ENT ENT exam: Present normal exam and mucous membranes moist Neck Neck exam: Present normal inspection and full ROM Chest Chest inspection: Present normal inspection and symmetric chest wall rise Respiratory Respiratory exam: Present normal lung sounds bilaterally; Absent respiratory distress Cardiovascular Cardiovascular exam: Present regular rate and normal rhythm Abdominal Exam Abdominal exam: Present soft; Absent distention, tenderness, guarding or rebound Extremities Exam Extremities exam: Present normal inspection and full ROM Back Exam Back exam: Present normal inspection and full ROM; Absent paraspinal tenderness or vertebral tenderness Neurological Exam Neurological exam: Present alert and oriented X3 Psychiatric Psychiatric exam: Present normal affect and normal mood Skin Skin exam: Present warm, dry, intact and normal color Course Quality Measures none Orders Category Date Time Status CT Screening NOW Care 01/16/25 19:07 Completed Insert IV NOW Care 01/16/25 20:[address] abdomen pelvis w con Stat Exams 01/16/25 19:07 Completed BMP [Basic Metabolic Panel] Stat Lab 01/16/25 19:12 Completed HCG,Qualitative Serum Stat Lab 01/16/25 19:12 Completed HYDROcodone*/APAP 7.5/325 [[place] 7.5/325] Med 01/16/25 19:07 Discontinued 1 tab PO X1 ONE Vital Signs Vital signs: Vital Signs Temperature 98.1 F 01/16/25 18:53 Pulse Rate 85 01/16/25 18:53 Respiratory Rate 20 01/16/25 18:53 Blood Pressure 128/85 H 01/16/25 18:53 Pulse Oximetry (%) 97 01/16/25 18:53 Fall MDM Narrative MDM Narrative:: 29yof presents to ED for lower abdominal pain s/p fall today. Patient reports she slipped on a wet floor and fell onto her right side, denies head injury. History of umbilical hernia repair on 12/18/2024. Patient reports she felt something tear in lower abdomen with fall. No nausea/vomiting or urinary symptoms reported. Denies neck pain, back pain or joint pain from fall. 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 Patient updated on labs and imaging. Injury and symptoms c/w abdominal muscle strain. Encouraged rest, Motrin/Tylenol, muscle relaxer, ice/heat application prn. Stable for discharge, RTED precautions given. Patient data External records reviewed:: [facility] previous records (12/19/2024 ED visit for abdominal pain) Clinical information provided by:: patient Social determinants that could affect healthcare access:: other (specify) (Unemployed) Patient has the following chronic illnesses:: Obesity How is presenting disease/condition affected by chronic disease/condition?: exacerbated by Evaluation data The following diagnostics were reviewed and interpreted by me:: lab results and radiology exam(s) Lab and/or radiology exams considered but not ordered:: None Interpretation Summary: CT abd/pelvis: IMPRESSION: No abdominal parenchymal laceration Abdominal aorta intact No free blood in the abdomen or pelvis Negative for pneumoperitoneum Dictated By: Titus Menon MD Medications / Prescriptions Medications or Prescriptions considered but not ordered:: None Medication administrations:: Medication Administration History Discontinued Medications Hydrocodone Bitart/Acetaminophen (Hydrocodone/[place] 7.5/325 Tablet) 1 tab PO X1 ONE Stop: 01/16/25 19:08 Last Admin: 01/16/25 19:52 Dose: 1 tab Documented By: Above medication administered in ED Consultations Consultation(s) initiated? (list below): No Diagnosis Fall Differential Diagnosis: other (Abdominal trauma, abdominal contusion, muscle strain, complication of hernia repair, wound dehiscence) Most likely diagnosis given after review of the tests above:: Abdominal wall strain Admission Indicated Admission indicated?: not indicated Admission Request Was there a request for admission?: No Disposition Plan Disposition Plan: Discharge Discharge Attestation Discharge Attestation: The patient and all family members were given an opportunity to ask questions and understood the discharge instructions. Discharge instructions specifically effects, indications for sooner follow up or return to the emergency department, and the expected course of current diagnosis. Patient condition: Stable Discharge Plan Plan Patient Disposition: HOME (Self Care) Patient condition on transfer: Stable Prescriptions/Referrals Prescriptions/Med Rec: New ibuprofen 600 mg tablet 600 mg PO Q6H PRN (Reason: pain) Qty: 30 0RF methocarbamol 500 mg tablet 1,000 mg PO Q8H PRN (Reason: pain) Qty: 30 0RF No Action Wegovy 2.4 mg/0.75 mL pen injector 2.4 mg SUBCUT Q7D Patient Comments: INJECT 2.4MG SUBCUTANEOUSLY WEEKLY docusate sodium [Colace] 100 mg capsule 100 mg PO BID Qty: 40 0RF hydrocodone-acetaminophen 5-325 mg tablet 1 tab PO Q6H MDD 4 PRN (Reason: pain (scale score 7-10)) Qty: 15 0RF ibuprofen 600 mg tablet 600 mg PO Q8H PRN (Reason: pain (scale score 4-6)) Qty: 15 0RF Referrals: No Primary/Family,Physician [Primary Care Provider] - In 1 week Problem List Clinical Impression: Abdominal wall strain Patient/Caregiver Discharge Instructions Education Materials: ED Muscle Strain, Abdomen Print Language: Andorran Stand Alone Forms: Jennifer Award Info., Patient Portal Info Letter PA/FIRE SUPPRESSION CAPTAIN Supervising Physician PA/FIRE SUPPRESSION CAPTAIN Supervising Physician: Ernst
[2025-01-16 19:41] LABS: HCG,Qualitative Serum Negative
[2025-01-16 19:49] LABS: Anion Gap 11 (7-16); BUN/Creatinine Ratio 13 Ratio (12-20); Blood Urea Nitrogen 8 mg/dL (9-23); Calcium 9.3 mg/dL (8.3-10.6); Carbon Dioxide 23.8 mMol/L (20.0-31.0); Chloride 105 mMol/L (98-107); Creatinine (Component) 0.6 mg/dL (0.6-1.3); Glucose 120 mg/dL (74-106); Osmolality,Calculated 278 (275-295); Potassium 4.3 mMol/L (3.4-5.1); Sodium 140 mMol/L (136-145); eGFR > 60 See Note
[2025-01-16] MEDS: HYDROcodone/APAP 7.5/325 TABLET 1 TAB PO (19:52)
[2025-01-17 00:08] VITALS: RESP 14
== END 2025-01-17 00:09 | disposition home or self-care (01) ==
PROVIDERS: Physician Assistant; Emergency Provider Emergency Medicine
DX: S39.011A Strain of muscle, fascia and tendon of abdomen, initial encounter (principal); K42.9 Umbilical hernia without obstruction or gangrene; W01.0XXA Fall on same level from slipping, tripping and stumbling without subsequent striking against object, initial encounter
CPT/HCPCS: 36415; 74177; 80048; 84703; 99283; A4649; Q9967; A9270

== ENCOUNTER 2025-02-25 04:26 | Emergency (ER) | payer MEDICAID, SELFPAY ==
[2025-02-25 04:28] VITALS: BMI 37.5
--- NOTE | 2025-02-25 04:30 | EDRME_ITS ---
Rapid Medical Screening Exam RME Arrival date/time: 02/25/25 04:26 This is a case of 29-year-old female with no medical history came in in the emergency room due to right-sided abdominal pain today with nausea vomiting persistence of the symptoms this patient decided to sought consult here in the emergency room Chief Complaint: Abdominal Pain Time Seen by Provider: 02/25/25 04:30 Exam: Moderate tenderness on the right lower quadrant no guarding no rebound no r igidity Clinical Impression: Abdominal pain
--- NOTE | 2025-02-25 04:30 | XR_ITS ---
Examination: CT abdomen and pelvis without contrast. Coronal 3-D reconstructions. Sagittal 2-D reconstructions. Date and time of exam: February 25, 2025, 0628 hours INDICATIONS: Generalized abdominal pain today COMPARISON: January 16, 2025 CTDI: vol (mGy): 12.5 DLP: (mGycm): 703 Technique: Axial images of the abdomen have been obtained, 3 mm slice thickness Intravenous contrast material has not been administered. Low dose protocols were performed. One or more of the following dose reduction techniques were used; automated exposure control, adjustment of the mA and/or KV according to patient size, use of iterative reconstruction technique. Findings: No focal liver or splenic lesions Absent gallbladder No pancreatic or adrenal mass No renal or ureteral calculi, no hydronephrosis Aorta normal size Small lymph nodes in the right lower mesentery No bowel obstruction or diverticulitis Normal appendix, coronal image 72, multiple small lymph nodes in the pericecal region Anteverted uterus Contracted urinary bladder Mild osteopenia IMPRESSION: No extrahepatic biliary tract dilatation. No renal or ureteral calculi, no hydronephrosis Normal appendix No bowel obstruction diverticulitis or free air Multiple small lymph nodes in the right pericecal region, consider mesenteric adenitis
[2025-02-25 04:32] VITALS: BP 114/76; PULSE 71; RESP 18; TEMP 37; O2SAT 98
[2025-02-25 04:33] VITALS: BMI 37.5
[2025-02-25 05:04] LABS: Collection Type, Urine Clean Catch; HCG Qualitative,Urine Negative
[2025-02-25 05:05] LABS: Basophils # (Auto) 0.0 Thou/mm3 (0.0-0.2); Basophils % (Auto) 0 % (0-2.5); Eosinophils # (Auto) 0.2 Thou/mm3 (0.0-0.5); Eosinophils % (Auto) 2 % (0-10); Hematocrit 36.3 % (36.0-46.0); Hemoglobin 11.9 g/dL (12.0-16.0); Immature Granulocytes Auto 0.02 Thou/mm3 (0.00-0.00); Lymphocytes # (Auto) 3.1 Thou/mm3 (1.0-4.8); Lymphocytes % (Auto) 39 % (10-50); Mean Corpuscular HGB Conc 32.8 g/dl (31.0-37.0); Mean Corpuscular Hemoglobin 28.2 pg (25.0-35.0); Mean Corpuscular Volume 86 fL (80-100); Monocytes # (Auto) 0.4 Thou/mm3 (0.0-0.8); Monocytes % (Auto) 5 % (0-12); Neutrophils # (Auto) 4.3 Thou/mm3 (1.8-7.7); Neutrophils % (Auto) 53 % (37-80); Nucleated Red Blood Cell # 0.00 Thou/mm3 (0.00-0.00); Nucleated Red Blood Cell % 0 /100 WBC (0); Platelet Count 281 Thou/mm3 (140-440); RDW Standard Deviation 41.3 fL (36.4-46.3); Red Blood Count 4.22 Miln/mm3 (4.00-5.20); White Blood Count 8.0 Thou/mm3 (3.6-11.0)
[2025-02-25 05:06] LABS: Amorphous Crystals,Urine Present (Absent); Bacteria,Urine Rare; Bilirubin,Urine Negative (Negative); Blood,Urine 2+ (Negative); Clarity,Urine Clear (Clear/Hazy); Color,Urine Lt-Yellow (Lt Yel-Yel); Glucose, Urine Negative (Negative); Ketones,Urine Negative (Negative); Leukocyte Esterase,Urine Positive (Negative); Nitrite,Urine Negative (Negative); PH,Urine 6.0 (5.0-7.0); Protein,Urine Negative (Neg - Trace); RBC,Urine 8 /hpf (0-3); Specific Gravity,Urine 1.027 (1.001-1.035); Squamous Epithelial Cell,Urine 6 /hpf (0-5); Urobilinogen,Urine Negative mg/dL (0.0-1.0); WBC,Urine 4 /hpf (0-5)
[2025-02-25 05:23] LABS: Alanine Aminotransferase 11 U/L (10-49); Albumin, Serum 4.3 gm/dL (3.5-5.0); Albumin/Globulin Ratio 1.4 (1.2-2.2); Alkaline Phosphatase 80 U/L (46-116); Anion Gap 8 (7-16); Aspartate Amino Transferase 10 U/L (0-34); BUN/Creatinine Ratio 20 Ratio (12-20); Bilirubin,Total 0.3 mg/dL (0.3-1.2); Blood Urea Nitrogen 12 mg/dL (9-23); Calcium 9.3 mg/dL (8.3-10.6); Calcium (Corrected) 9.3 mg/dL (8.5-10.1); Carbon Dioxide 27.8 mMol/L (20.0-31.0); Chloride 107 mMol/L (98-107); Creatinine (Component) 0.6 mg/dL (0.6-1.3); Estimated Creatinine Clearance 144.2 mL/min (>60); Globulin 3.0 gm/dL (2.3-3.5); Glucose 88 mg/dL (74-106); Lipase 40 U/L (12-53); Osmolality,Calculated 283 (275-295); Potassium 4.0 mMol/L (3.4-5.1); Sodium 143 mMol/L (136-145); Total Protein 7.3 gm/dL (5.7-8.2); eGFR > 60 See Note
[2025-02-25 05:25] VITALS: BP 107/74; PULSE 68; RESP 15; TEMP 37; O2SAT 100
--- NOTE | 2025-02-25 06:16 | EDNOTE_ITS ---
<Statement entered by Gabriella Al MD - 02/27/25 17:43> I, Gabriella Al MD, have reviewed the history, exam, and assessment of the patient. I have evaluated the patient independently and agree with the plan of care documented by [ ]. All diagnostic studies were reviewed and discussed. I confirm the diagnosis as documented by the Resident. I was present during the Medical Decision Making for this patient. The patient's plan of care was created between myself and the Resident and consistent with our discussion of the patient's case. ED General RME/HPI General Chief complaint: Abdominal Pain Stated complaint: RIGHT LOWER ABD PAIN Time Seen by Provider: 02/25/25 04:30 Arrival date/time: 02/25/25 04:26 RME / HPI RME / HPI narrative: 02/25/25 04:26 This is a case of 29-year-old female with no medical history came in in the emergency room due to right-sided abdominal pain today with nausea vomiting persistence of the symptoms this patient decided to sought consult here in the emergency room Exam: Moderate tenderness on the right lower quadrant no guarding no rebound no rigidity Impression: Abdominal pain Related Data Home Medications ?Medication ?Instructions ?Recorded ?Confirmed semaglutide (weight loss) 2.4 2.4 mg subcut Q7D 12/17/24 mg/0.75 mL subcutaneous pen injector (Wegovy) Previous Rx's ?Medication ?Instructions ?Recorded docusate sodium 100 mg capsule 100 mg PO BID #40 caps 12/18/24 (Colace) hydrocodone 5 mg-acetaminophen 325 1 tab PO Q6H PRN pa in (scale score 12/18/24 mg tablet 7-10) #15 tabs ibuprofen 600 mg tablet 600 mg PO Q8H PRN pain (scal e 12/18/24 score 4-6) #15 tabs ibuprofen 600 mg tablet 600 mg PO Q6H PRN pain #30 t abs 01/16/25 methocarbamol 500 mg tablet 1,000 mg (2 x 500 mg) PO Q 8H PRN 01/16/25 pain #30 tabs ibuprofen 800 mg tablet 800 mg PO Q8H PRN pain 7 day s #21 02/25/25 tabs Allergies Allergy/AdvReac Type Severity Reaction Status Date / Time No Known Allergies Allergy Verified 01/16/25 18:48 ED Exam Narrative Physical exam: Physical Exam: GENERAL: Awake, Answering questions appropriately, appears stated age HEENT: NC/AT. Moist mucosa. PERRLA/EOMI. Conjunctival pallor noted CARDIO: Heart RRR, no obvious murmurs, no JVD PULM: No coughing or visible SOB. Lungs CTA B/L. GI: Abdomen soft, tenderness to palpation in the right upper and right lower quadrants with some rebound tenderness noted otherwise unremarkable, no rigidity. Borborygmi apparent SKIN/MSK/EXT: No wounds/discoloration/rashes/edema/amputations noted. +Pedal pulses present B/L. NEURO: Oriented x3, Moves extremities x4, No focal neurologic deficits noted Course Quality Measures none Orders Category Date Time Status IV [Insert IV] NOW Care 02/25/25 06:[address] abdomen pelvis wo con Stat Exams 02/25/25 04:30 Completed US pelvic complete Stat Exams 02/25/25 09:06 Completed CBC Stat Lab 02/25/25 05:00 Completed Comprehensive Metabolic Panel Stat Lab 02/25/25 05:00 Completed HCG Qualitative,Urine Stat Lab 02/25/25 04:55 Completed Lactic Acid [Lactate (Lactic Acid)] Stat Lab 02/25/25 12:16 Completed Lipase Stat Lab 02/25/25 05:00 Completed Urinalysis Stat Lab 02/25/25 04:55 Completed Dicyclomine [Bentyl] Med 02/25/25 08:35 Discontinued 10 mg PO X1 ONE Ketorolac Inj [Toradol Inj] Med 02/25/25 08:35 Discontinued 10 mg IVP X1 ONE Ketorolac Inj [Toradol Inj] Med 02/25/25 06:49 Discontinued 30 mg IVP X1 ONE Morphine* Inj Med 02/25/25 09:15 Discontinued 2 mg IVP X1 ONE Morphine* Inj Med 02/25/25 11:17 Discontinued 2 mg IVP X1 ONE Morphine* Inj Med 02/25/25 12:06 Discontinued 4 mg IVP X1 ONE Ondansetron Inj [Zofran Inj] Med 02/25/25 09:49 Discontinued 4 mg IVP X1 ONE Ringers Lactated 1000 ml [Lactated Ringers] 1,000 ml Med 02/25/25 12:06 Active IV 999 mls/hr Vital Signs Vital signs: Vital Signs Temperature 98.6 F 02/25/25 04:32 Pulse Rate 71 02/25/25 04:32 Respiratory Rate 18 02/25/25 04:32 Blood Pressure 114/76 02/25/25 04:32 Pulse Oximetry (%) 98 02/25/25 04:32 Oxygen Delivery Method Room Air 02/25/25 04:32 Discharge Plan Plan Patient Disposition: HOME (Self Care) Patient condition on transfer: Stable Prescriptions/Referrals Prescriptions/Med Rec: New ibuprofen 800 mg tablet 800 mg PO Q8H PRN (Reason: pain) 7 Days Qty: 21 0RF No Action ibuprofen 600 mg tablet 600 mg PO Q6H PRN (Reason: pain) Qty: 30 0RF methocarbamol 500 mg tablet 1,000 mg PO Q8H PRN (Reason: pain) Qty: 30 0RF Wegovy 2.4 mg/0.75 mL pen injector 2.4 mg SUBCUT Q7D Patient Comments: INJECT 2.4MG SUBCUTANEOUSLY WEEKLY docusate sodium [Colace] 100 mg capsule 100 mg PO BID Qty: 40 0RF hydrocodone-acetaminophen 5-325 mg tablet 1 tab PO Q6H MDD 4 PRN (Reason: pain (scale score 7-10)) Qty: 15 0RF ibuprofen 600 mg tablet 600 mg PO Q8H PRN (Reason: pain (scale score 4-6)) Qty: 15 0RF Referrals: No Primary/Family,Physician [Primary Care Provider] - In 1 week Problem List Clinical Impression: Acute mesenteric adenitis Patient/Caregiver Discharge Instructions Diet Instructions: Avoid dairy, fatty/greasy meals, spicy or acidic food and instead opt for clear fluids, well cooked/steamed vegetables and lean protein (chicken, fish and lean red meat) Additional Instructions: Please take ibuprofen 800 mg by mouth 3 times a day as needed with pain and alternate Tylenol [id number] for pain management Follow-up with your primary care doctor within the next 3 to 5 days Print Language: Thai Stand Alone Forms: Jennifer Award Info., Patient Portal Info Letter MDM Narrative MDM hospital course (for use when minimal MDM required): HPI: 29-year-old female with past medical history of laparoscopic cholecystectomy, laparoscopic hernia repair with mesh placement presented to the ER on 02/25 with an episode of worsening abdominal pain. Patient states the pain started on Tuesday and she states she was not doing anything in particular when the pain st arted. She notes the pain was initially 5 out of 10 but has progressively worsened to around 8 out of 10. She denies having any fever/chills, recent sick contacts, dietary changes, nausea, vomiting, diarrhea, melena, hematochezia or hematemesis. She says the pain is different from when she had gallbladder and hernia pain. She denies actively being or the possibility of being . She denies any trauma to the area, but does state that she has been taking Wegovy for almost a year and is currently at the highest dose. She does state that she has heavy periods but she has never been told that she has anemia. On examination, please refer to physical exam noted above; patient presented normotensive, with a regular heart rate, respiratory rate 20, afebrile satting 100 on room air. Pertinent lab findings included normocytic anemia with hemoglobin 11.9, CMP is largely unremarkable without any electrolyte abnormalities or LFT elevation, urinalysis does show some hematuria, positive for leukocyte esterase, rare bacteria but the sample is contaminated with some squamous epithelial cells. Urine hCG is negative and CT abdomen pelvis shows findings concerning for mesenteric adenitis. Differentials at this point include appendicitis, ovarian torsion, gastritis, enterocolitis, diverticulitis #Abdominal pain #Mesenteric Adenitis As noted above in HPI, lab findings including CT scan largely unremarkable other than multiple small lymph nodes in the right pericecal region Pelvic U/S negative for torsion Plan: Will d/c with ibuprofen 800mg q8h as needed, alternate with OTC Tylenol Follow-up with PCP in 3-5 days Dietary modifications Patient seen and assessed with attending Dr. Mikaela Briones, DO PGY-2 Internal Medicine - [facility] Medication Administration(s) Medication Administration History Lactated Ringer's (Lactated Ringers) 1,000 mls @ 999 mls/hr IV .Q1H1M ONE Stop: 02/25/25 13:06 Discontinued Medications Dicyclomine HCl (Dicyclomine 10 Mg Capsule) 10 mg PO X1 ONE Stop: 02/25/25 08:36 Last Admin: 02/25/25 08:50 Dose: 10 mg Documented By: VG Ketorolac Tromethamine (Ketorolac Inj 30 Mg/Ml Vial) 30 mg IVP X1 ONE Stop: 02/25/25 06:50 Last Admin: 02/25/25 06:59 Dose: 30 mg Documented By: TALAT Ketorolac Tromethamine (Ketorolac Inj 30 Mg/Ml Vial) 10 mg IVP X1 ONE Stop: 02/25/25 08:36 Last Admin: 02/25/25 08:50 Dose: 10 mg Documented By: VG Morphine Sulfate (Morphine Sulf Inj 4 Mg/Ml Vial) 2 mg IVP X1 ONE Stop: 02/25/25 09:16 Last Admin: 02/25/25 09:46 Dose: 2 mg Documented By: VG Morphine Sulfate (Morphine Sulf Inj 4 Mg/Ml Vial) 2 mg IVP X1 ONE Stop: 02/25/25 11:18 Last Admin: 02/25/25 11:33 Dose: 2 mg Documented By: VG Morphine Sulfate (Morphine Sulf Inj 4 Mg/Ml Vial) 4 mg IVP X1 ONE Stop: 02/25/25 12:07 Ondansetron HCl (Ondansetron Inj 2 Mg/Ml Inj 2 Ml) 4 mg IVP X1 ONE; Protocol Stop: 02/25/25 09:50 Last Admin: 02/25/25 09:52 Dose: 4 mg Documented By: VG
[2025-02-25 06:50] VITALS: BP 120/80; PULSE 63; RESP 20; TEMP 36.6; O2SAT 100
[2025-02-25] MEDS: KETOROLAC INJ 30 MG/ML VIAL IVP (06:59)
[2025-02-25] MEDS: KETOROLAC INJ 30 MG/ML VIAL 10 MG IVP (08:50)
[2025-02-25] MEDS: DICYCLOMINE 10 MG CAPSULE PO (08:50)
[2025-02-25 09:00] VITALS: BP 112/80; PULSE 62; RESP 16; TEMP 36.8; O2SAT 100
--- NOTE | 2025-02-25 09:06 | XR_ITS ---
Examination: Pelvic ultrasound, transabdominal, complete Technique: Transabdominal ultrasound of the pelvis performed using grayscale imaging Date and time of exam: February 25, 2025, 1014 hours INDICATIONS: Right lower abdominal pain pelvic pain today FINDINGS: Uterus 9.2 cm endometrial stripe 0.3 cm No uterine mass or intrauterine gestation Right ovary 2.9 cm arterial flow Left ovary 3.4 cm arterial flow IMPRESSION: No uterine or adnexal mass
[2025-02-25] MEDS: MORPHINE SULF INJ 4 MG/ML VIAL 2 MG IVP ×2 (09:46→11:33)
[2025-02-25] MEDS: ONDANSETRON INJ 2 MG/ML INJ 2 ML 4 MG IVP (09:52)
[2025-02-25 12:21] LABS: Lactate (Lactic Acid) 0.7 mMol/L (0.4-2.0)
[2025-02-25] MEDS: RINGERS LACTATED 1000 ML 1,000 ML 999 ML IV (13:41)
[2025-02-25] MEDS: MORPHINE SULF INJ 4 MG/ML VIAL IVP (13:42)
[2025-02-25 14:17] VITALS: BP 107/57; PULSE 74; RESP 15; O2SAT 99
== END 2025-02-25 14:38 | disposition home or self-care (01) ==
PROVIDERS: Nurse Practitioner Family; Emergency Provider Emergency Medicine
DX: I88.0 Nonspecific mesenteric lymphadenitis (principal); R10.31 Right lower quadrant pain; R10.21 Pelvic and perineal pain right side
CPT/HCPCS: 36415; 74176; 76856; 80053; 81001; 81025; 83605; 83690; 85025; 96361; 96374; 96375; 96376; 99284; J1885; J2270; J2405; J7120; A9270